=== PATIENT | female | born 1975 | race Caucasian/White ===

== ENCOUNTER 2020-01-28 09:08 | Emergency (ER) | payer OTHER ==
[~2020-01-28] VITALS: Ht 162.6 cm; Wt 88.5 kg
[2020-01-28 09:17] VITALS: Ht 162.6 cm; Wt 88.5 kg
[2020-01-28 11:18] VITALS: BP 125/71
== END 2020-01-28 11:18 | disposition home or self-care (01) ==
LOC: ED 09:08
DX: H01.001 Unspecified blepharitis right upper eyelid (principal)